=== PATIENT | male | born 2000 | race Caucasian/White ===

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

== ENCOUNTER 2020-01-17 08:43 | Emergency (ER) | payer MEDICAID ==
[~2020-01-17] VITALS: Ht 180.3 cm; Wt 56.2 kg
[2020-01-17 08:49] VITALS: Ht 180.3 cm; Wt 56.2 kg
[2020-01-17 09:44] LABS: UA SPECIFIC GRAVITY >=1.030 (1.005-1.035); microscopic required? YES; urine erythrocyte 3+ (NEGATIVE)
[2020-01-17 11:36] VITALS: BP 122/57
== END 2020-01-17 11:34 | disposition home or self-care (01) ==
LOC: ED 08:43
PROVIDERS: Emergency Medicine
DX: N45.1 Epididymitis (principal)
CPT/HCPCS: 87491; 87591; J0696; Q0092

== ENCOUNTER 2020-01-20 18:44 | Emergency (ER) | payer MEDICAID ==
[~2020-01-20] VITALS: Ht 180.3 cm; Wt 57.6 kg
[2020-01-20 18:54] VITALS: Ht 180.3 cm; Wt 57.6 kg
[2020-01-20 19:20] VITALS: BP 107/76
== END 2020-01-20 19:20 | disposition home or self-care (01) ==
LOC: ED 18:44
DX: N39.0 Urinary tract infection, site not specified (principal); N45.1 Epididymitis
CPT/HCPCS: J0696